=== PATIENT | female | born 2000 | race Two or more races ===

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

== ENCOUNTER 2018-04-11 10:40 | Emergency (ER) | payer OTHER, BC | END 2018-04-11 13:23 | disposition home or self-care (01) | LOC: FTE 13:23 | DX: N64.4 Mastodynia (principal) | CPT/HCPCS: 99283 ==